=== PATIENT | female | born 1955 | race Caucasian/White ===

== ENCOUNTER 2021-10-26 06:22 | Day surgery (SDC) | payer OTHER ==
[~2021-10-26 06:22] MED LIST: B COMPLEX1 EAC1; CELEXA20 MG PO; CRESTOR10 MG PO; FOLIC ACID1 MG PO; FOLIVANE-PLUS1 EACH PO; GLUMETZA1000 MG PO; NASAL MIST126 ML; SYNTHROID100 MCG PO; TRICOR145 MG PO; [UNRECOGNIZED DRUG - OTHER] PO
== END 2021-10-26 22:30 | disposition home or self-care (01) ==
LOC: CIR.AMB 06:22
PROVIDERS: ATTEND Surgery
DX: C50.011 Malignant neoplasm of nipple and areola, right female breast (principal); R59.0 Localized enlarged lymph nodes; Z91.013 Allergy to seafood; Z87.891 Personal history of nicotine dependence; E11.9 Type 2 diabetes mellitus without complications; Z79.84 Long term (current) use of oral hypoglycemic drugs; E03.9 Hypothyroidism, unspecified; F41.9 Anxiety disorder, unspecified; Z88.8 Allergy status to other drugs, medicaments and biological substances; Z20.822 Contact with and (suspected) exposure to COVID-19
CPT/HCPCS: 19281; 19301; 38525; 38900; C1889

== ENCOUNTER 2021-12-06 07:51 | Outpatient (CLI) | payer OTHER | END 2021-12-06 07:58 | disposition home or self-care (01) | LOC: TOM 07:51 | PROVIDERS: ATTEND Surgery | DX: D56.3 Thalassemia minor (principal); E78.2 Mixed hyperlipidemia; E03.8 Other specified hypothyroidism; E53.8 Deficiency of other specified B group vitamins; F33.1 Major depressive disorder, recurrent, moderate; F51.01 Primary insomnia; N18.2 Chronic kidney disease, stage 2 (mild); N63.10 Unspecified lump in the right breast, unspecified quadrant; G63 Polyneuropathy in diseases classified elsewhere; D05.11 Intraductal carcinoma in situ of right breast; F12.20 Cannabis dependence, uncomplicated | CPT/HCPCS: 71270; 74178; Q9965 ==